=== PATIENT | female | born 1960 | race African-American/Black ===

== ENCOUNTER 2023-03-30 01:51 | Emergency (ER) | payer OTHER ==
[~2023-03-30] VITALS: Ht 170.2 cm; Wt 130.7 kg
[2023-03-30 02:49] LABS: Basophils # (auto) 0.1 10 ^3/uL (0-0.2); Eosinophils # (auto) 0.5 10 ^3/uL (0-0.8); Eosinophils % (auto) 6.3 % (0.0-7.0); Hemoglobin 12.2 g/dL (12.2-16.2); Monocytes # (auto) 0.6 10 ^3/uL (0-1.3); Nucleated Red Blood Cells % 0.2 %
[2023-03-30 02:51] LABS: Basophils % (auto) 1.3 % (0.0-2.0); Hematocrit 37.3 % (36.0-46.0); Lymphocytes # (auto) 2.7 10 ^3/uL (0.4-5.4); Mean Corpuscular Hemoglobin 26.5 pg (28.0-32.0); Mean Corpuscular Hgb Conc. 32.8 g/dL (32.0-36.0); Mean Corpuscular Volume 80.8 fL (80.0-100.0); Monocytes % (auto) 7.8 % (0.0-12.0); Neutrophils # (auto) 4.2 10 ^3/uL (1.6-8.6); Neutrophils % (auto) 51.6 % (37.0-80.0); Red Blood Cells 4.61 10^6/uL (4.0-5.20); Red Cell Distribution Width 15.2 % (11.8-14.3); White Blood Cell 8.1 10^3/uL (4.4-10.8)
[2023-03-30 03:01] LABS: Albumin 3.5 g/dL (3.4-5.0); BUN/Creatinine Ratio 23.6 (10.0-20.0); Calcium 9.3 mg/dL (8.5-10.1); Potassium 4.1 mmol/L (3.5-5.1)
[2023-03-30 03:04] LABS: Bilirubin, Total 0.4 mg/dL (0.2-1.0); Total Protein 7.5 g/dL (6.4-8.2)
[2023-03-30 03:06] LABS: INR 0.97 (0.9-1.15); Partial Thromboplastin Time 24.8 sec (24.6-33.4)
[2023-03-30 03:33] LABS: Urine Bacteria FEW /hpf (None Seen); Urine Blood Negative /uL (Negative); Urine Specific Gravity 1.023 (1.001-1.035); Urine WBC <1 /hpf (0 - 5)
[2023-03-30 05:50] VITALS: BP 145/74
== END 2023-03-30 09:45 | disposition left against medical advice (07) ==
LOC: ER 01:51
DX: R20.2 Paresthesia of skin (principal); E11.9 Type 2 diabetes mellitus without complications; E78.5 Hyperlipidemia, unspecified; I10 Essential (primary) hypertension; Z98.890 Other specified postprocedural states
CPT/HCPCS: 36415; 70496; 71045; 80053; 81001; 84484; 85025; 85610; 85730; 93005

== ENCOUNTER 2024-08-04 09:14 | Inpatient (IN) | payer MEDICARE, OTHER ==
[~2024-08-04] VITALS: Ht 170.2 cm; Wt 145.8 kg
[2024-08-04] VITALS (9 sets, daily range): BP systolic 145–166; BP diastolic 102–104; PULSE 22–122; RESP 12–22; TEMP 97.5–98; O2SAT 91–100
[2024-08-04] MEDS: ALBUTEROL SULF 2.5 MG/0.5ML(0.5%) NEB SOLN NEB ONE (09:56)
[2024-08-04] MEDS: IPRATROPIUM BROM 0.5 MG/2.5ML INH SOL NEB ONE (09:56)
[2024-08-04 10:42] LABS: Basophils # (auto) 0 10 ^3/uL (0-0.2); Eosinophils # (auto) 0.2 10 ^3/uL (0-0.8); Mean Corpuscular Hemoglobin 26.2 pg (28.0-32.0); Monocytes # (auto) 0.6 10 ^3/uL (0-1.3); Nucleated Red Blood Cells % 0.1 %
[2024-08-04 10:44] LABS: Basophils % (auto) 0.4 % (0.0-2.0); Eosinophils % (auto) 2.9 % (0.0-7.0); Hematocrit 39.5 % (36.0-46.0); Hemoglobin 12.6 g/dL (12.2-16.2); Lymphocytes % (auto) 27.4 % (10.0-50.0); Mean Corpuscular Hgb Conc. 31.9 g/dL (32.0-36.0); Mean Corpuscular Volume 82.1 fL (80.0-100.0); Monocytes % (auto) 7.6 % (0.0-12.0); Neutrophils # (auto) 4.6 10 ^3/uL (1.6-8.6); Neutrophils % (auto) 61.7 % (37.0-80.0); Platelet Count (auto) 217 10^3/uL (140-450); Red Blood Cells 4.82 10^6/uL (4.0-5.20); Red Cell Distribution Width 15.5 % (11.8-14.3); White Blood Cell 7.4 10^3/uL (4.4-10.8)
[2024-08-04] MEDS: FUROSEMIDE 40 MG/4 ML VIAL IV ONE (11:35)
[2024-08-04] MEDS: ACETAMINOPHEN 325 MG TAB PO ONE (11:35)
[2024-08-04 12:24] LABS: Chloride 107 mmol/L (98-107); Potassium 3.2 mmol/L (3.5-5.1); Sodium 143 mmol/L (136-145)
[2024-08-04 12:25] LABS: Anion Gap 9 (5-15); Carbon Dioxide 27 mmol/L (20-31)
[2024-08-04 12:26] LABS: Calcium 9.8 mg/dL (8.7-10.4)
[2024-08-04 12:30] LABS: Glucose 144 mg/dL (74-106)
[2024-08-04 12:31] LABS: BUN/Creatinine Ratio 13.4 (10.0-20.0); Blood Urea Nitrogen 11 mg/dL (9-23)
[2024-08-04] MEDS: POTASSIUM EFFERVESENT TAB 25 MEQ PO ONE (15:58)
[2024-08-04] MEDS ORDERED: ONDANSETRON HCL 4 MG/2 ML VIAL IV PRN (16:30)
[2024-08-04] MEDS: methylPREDNISolone SOD SUCC 125 MG/2 ML VL IV SCH (17:45)
[2024-08-04] MEDS: ALBUTEROL SULF 2.5 MG/0.5ML(0.5%) NEB SOLN NEB SCH ×2 (18:11→22:32)
[2024-08-04] MEDS: IPRATROPIUM BROM 0.5 MG/2.5ML INH SOL NEB SCH ×2 (18:11→22:32)
[2024-08-04] MEDS: SODIUM CHLOR 0.9% PF (SALINE LOCK) 10ML VIAL/SYR IV SCH (22:35)
[2024-08-04] MEDS: hydrALAZINE HCL 20 MG/ML VL IV PRN (22:35)
[2024-08-05] VITALS (21 sets, daily range): BP systolic 119–162; BP diastolic 76–105; PULSE 98–155; RESP 16–21; TEMP 97.5–98.6; O2SAT 94–100
[2024-08-05] MEDS ORDERED: ATOR10TA PO (01:18)
[2024-08-05] MEDS ORDERED: AMLO1TAB22 PO (01:18)
[2024-08-05] MEDS: ACETAMINOPHEN 325 MG TAB PO PRN (04:53)
[2024-08-05 09:57] LABS: Chloride 105 mmol/L (98-107); Potassium 3.4 mmol/L (3.5-5.1); Sodium 140 mmol/L (136-145)
[2024-08-05 09:59] LABS: Anion Gap 12 (5-15); Carbon Dioxide 23 mmol/L (20-31)
[2024-08-05 10:00] LABS: Calcium 10.1 mg/dL (8.7-10.4); Eosinophils # (auto) 0 10 ^3/uL (0-0.8)
[2024-08-05 10:04] LABS: Basophils # (auto) 0.1 10 ^3/uL (0-0.2); Basophils % (auto) 0.8 % (0.0-2.0); Hematocrit 40.2 % (36.0-46.0); Lymphocytes # (auto) 0.5 10 ^3/uL (0.4-5.4); Lymphocytes % (auto) 8.4 % (10.0-50.0); Mean Corpuscular Hemoglobin 26.5 pg (28.0-32.0); Mean Corpuscular Hgb Conc. 32.4 g/dL (32.0-36.0); Mean Corpuscular Volume 81.7 fL (80.0-100.0); Monocytes # (auto) 0 10 ^3/uL (0-1.3); Monocytes % (auto) 0.7 % (0.0-12.0); Neutrophils # (auto) 5.8 10 ^3/uL (1.6-8.6); Neutrophils % (auto) 90.1 % (37.0-80.0); Nucleated Red Blood Cells % 0.2 %; Platelet Count (auto) 241 10^3/uL (140-450); Red Blood Cells 4.92 10^6/uL (4.0-5.20); Red Cell Distribution Width 15.5 % (11.8-14.3); White Blood Cell 6.4 10^3/uL (4.4-10.8)
[2024-08-05 10:05] LABS: Alkaline Phosphatase 101 U/L (46-116); Blood Urea Nitrogen 15 mg/dL (9-23); Glucose 316 mg/dL (74-106)
[2024-08-05] MEDS: ENOXAPARIN SOD 40 MG/0.4 ML SYRINGE SC SCH (10:05)
[2024-08-05 10:06] LABS: Alanine Aminotransferase 29 U/L (7-40); Aspartate Aminotransferase 23 U/L (13-40)
[2024-08-05 10:07] LABS: Albumin 4.6 g/dL (3.2-4.8); Bilirubin, Total 0.7 mg/dL (0.2-1.0); Total Protein 8.2 g/dL (5.7-8.2)
[2024-08-05] MEDS: LEVALBUTEROL HCL 1.25 MG/3 ML NEB NEB SCH (10:41)
[2024-08-05] MEDS ORDERED: LEVALBUTEROL HCL 1.25 MG/3 ML NEB NEB SCH (14:00)
[2024-08-05] MEDS: HYDROcodone-ACET 5/325MG TAB PO PRN (15:09)
[2024-08-05 17:14] LABS: COVID19 ANTIGEN SOFIA FIA NEGATIVE (NEGATIVE)
[2024-08-05] MEDS: HYDROmorphone HCL 2 MG/ML VL/or syr IV PRN (23:52)
[2024-08-06] VITALS (19 sets, daily range): BP systolic 148–168; BP diastolic 94–111; PULSE 82–129; RESP 18–20; TEMP 97.3–98.9; O2SAT 95–100
[2024-08-06 00:36] LABS: Rapid Influenza A Negative (Negative); Rapid Influenza B Negative (Negative)
[2024-08-06 08:06] LABS: Mean Corpuscular Hgb Conc. 31.9 g/dL (32.0-36.0); Mean Corpuscular Volume 82.4 fL (80.0-100.0)
[2024-08-06 08:08] LABS: Hematocrit 38.6 % (36.0-46.0); Hemoglobin 12.3 g/dL (12.2-16.2); Mean Corpuscular Hemoglobin 26.2 pg (28.0-32.0); Platelet Count (auto) 240 10^3/uL (140-450); Red Blood Cells 4.69 10^6/uL (4.0-5.20); Red Cell Distribution Width 15.7 % (11.8-14.3)
[2024-08-06 08:21] LABS: Band Neutrophils % (manual) 0; Basophils % (manual) 0 (0.0-2.0); Blast Cells 0; Eosinophils % (manual) 0 (0-7); Metamyelocytes % 0; Monocytes % (manual) 0 (0-12); Myelocytes % 0; Promyelocytes % 0; Reactive Lymphocytes 0
[2024-08-06 08:31] LABS: Alanine Aminotransferase 25 U/L (7-40); Albumin 4.3 g/dL (3.2-4.8); Alkaline Phosphatase 90 U/L (46-116); Anion Gap 12 (5-15); Aspartate Aminotransferase 17 U/L (13-40); BUN/Creatinine Ratio 16.9 (10.0-20.0); Blood Urea Nitrogen 20 mg/dL (9-23); Calcium 10.4 mg/dL (8.7-10.4); Carbon Dioxide 24 mmol/L (20-31); Chloride 103 mmol/L (98-107); Glucose 256 mg/dL (74-106); Potassium 4.2 mmol/L (3.5-5.1); Sodium 139 mmol/L (136-145)
[2024-08-06 08:32] LABS: Bilirubin, Total 0.5 mg/dL (0.2-1.0); Total Protein 7.8 g/dL (5.7-8.2)
[2024-08-06 09:03] LABS: Lymphocytes % (manual) 6 (10.0-50.0); Platelet Estimate Adequate
[2024-08-06] MEDS: AZITHROMYCIN 500MG/ 250ML 250 ML IV ONE (11:25)
[2024-08-06] MEDS ORDERED: METF-370 PO (16:41)
[2024-08-07] VITALS (21 sets, daily range): BP systolic 140–170; BP diastolic 85–111; PULSE 98–132; RESP 16–21; TEMP 96.2–98.1; O2SAT 94–100
[2024-08-07 06:03] LABS: Hematocrit 38.6 % (36.0-46.0); Hemoglobin 12.3 g/dL (12.2-16.2); Mean Corpuscular Hemoglobin 26.1 pg (28.0-32.0); Mean Corpuscular Hgb Conc. 31.8 g/dL (32.0-36.0); Platelet Count (auto) 230 10^3/uL (140-450); Red Blood Cells 4.71 10^6/uL (4.0-5.20); Red Cell Distribution Width 15.3 % (11.8-14.3); White Blood Cell 11.7 10^3/uL (4.4-10.8)
[2024-08-07 06:16] LABS: Alanine Aminotransferase 30 U/L (7-40); Alkaline Phosphatase 81 U/L (46-116); Anion Gap 8 (5-15); BUN/Creatinine Ratio 21.5 (10.0-20.0); Blood Urea Nitrogen 23 mg/dL (9-23); Calcium 10.1 mg/dL (8.7-10.4); Carbon Dioxide 25 mmol/L (20-31); Chloride 106 mmol/L (98-107); Glucose 255 mg/dL (74-106); Potassium 4.5 mmol/L (3.5-5.1); Sodium 139 mmol/L (136-145)
[2024-08-07 06:17] LABS: Albumin 4.4 g/dL (3.2-4.8); Aspartate Aminotransferase 28 U/L (13-40); Bilirubin, Total 0.5 mg/dL (0.2-1.0); Total Protein 7.5 g/dL (5.7-8.2)
[2024-08-07 06:40] LABS: Basophils % (manual) 0 (0.0-2.0); Blast Cells 0; Eosinophils % (manual) 0 (0-7); Metamyelocytes % 0; Monocytes % (manual) 0 (0-12); Myelocytes % 0; Promyelocytes % 0; Reactive Lymphocytes 0
[2024-08-07 07:45] LABS: Band Neutrophils % (manual) 4; Lymphocytes % (manual) 7 (10.0-50.0)
[2024-08-07 07:46] LABS: Platelet Estimate Adequate
[2024-08-07 09:10] LABS: Magnesium 2.1 mg/dL (1.6-2.6)
[2024-08-07 10:33] LABS: INR 1.11 (0.9-1.15); Partial Thromboplastin Time 23.1 SEC (24.5-34.5); Prothrombin Time 11.7 sec (9.3-11.8)
[2024-08-07] MEDS: cefTRIAXone 1GM/50ML D5W 50 ML IV SCH (11:09)
[2024-08-07] MEDS: ENOXAPARIN SOD 40 MG/0.4 ML SYRINGE SC SCH (11:12)
[2024-08-07] MEDS: AZITHROMYCIN 500MG/ 250ML 250 ML IV SCH (11:13)
[2024-08-07] MEDS: LACTATED RINGER'S 1,000 ML IV ONE (16:34)
[2024-08-07] MEDS: dilTIAZem 25 MG/5 ML VIAL IV ONE (18:08)
[2024-08-07] MEDS: METOPROLOL SUCCINATE XL 50 MG TAB PO ONE (18:12)
[2024-08-07] MEDS ORDERED: levoFLOXacin 750MG 150 ML IV ONE (18:15)
[2024-08-07 18:23] LABS: Urine Bacteria None Seen /hpf (None Seen)
[2024-08-07] MEDS: SODIUM CHLORIDE 0.9% 1,000 ML IV SCH (18:38)
[2024-08-07 18:59] LABS: Amphetamine Screen, Urine Neg (NEGATIVE); Barbiturate Scree,Urine Neg (NEGATIVE); Benzodiazephine Screen, Urine Neg (NEGATIVE); Cocaine Screen, Urine Neg (NEGATIVE); Opiate Scree,Urine Neg (NEGATIVE)
[2024-08-07 19:00] LABS: Cannabinoid Screen, Urine Neg (NEGATIVE); Phencyclidine Screen, Urine Neg (NEGATIVE); Urine Blood Negative /uL (Negative); Urine Clarity Clear (Clear); Urine Color Yellow (Yellow); Urine Mucus FEW (None Seen); Urine Protein, UAD 1+ (Negative); Urine Specific Gravity 1.032 (1.001-1.035); Urine Urobilinogen Normal (Negative); Urine WBC 1 /hpf (0 - 5)
[2024-08-07] MEDS ORDERED: LEVOFLOXACIN 250 MG IV ONE (20:00)
[2024-08-07] MEDS ORDERED: levoFLOXacin 250MG 50 ML IV ONE (20:00)
[2024-08-07] MEDS ORDERED: levoFLOXacin 500MG 100 ML IV ONE (20:00)
[2024-08-07 20:19] LABS: Lactic Acid w/Reflex 4.2 mmol/L (0.4-2.0)
[2024-08-07] MEDS: levoFLOXacin 250MG 50 ML IV SCH (20:33)
[2024-08-07] MEDS: APIXABAN 5 MG TAB PO SCH (20:52)
[2024-08-07] MEDS: FAMOTIDINE 20 MG TAB PO SCH (20:52)
[2024-08-08] VITALS (20 sets, daily range): BP systolic 141–170; BP diastolic 95–114; PULSE 93–120; RESP 18–21; TEMP 97.2–98.3; O2SAT 95–100
[2024-08-08 07:27] LABS: Basophils # (auto) 0 10 ^3/uL (0-0.2); Eosinophils # (auto) 0 10 ^3/uL (0-0.8); Hemoglobin 11.5 g/dL (12.2-16.2); Lymphocytes # (auto) 0.6 10 ^3/uL (0.4-5.4); Lymphocytes % (auto) 7.3 % (10.0-50.0); Mean Corpuscular Hemoglobin 25.9 pg (28.0-32.0); Mean Corpuscular Volume 80.9 fL (80.0-100.0); Monocytes # (auto) 0.3 10 ^3/uL (0-1.3); Monocytes % (auto) 4.3 % (0.0-12.0); Neutrophils # (auto) 7.1 10 ^3/uL (1.6-8.6); Neutrophils % (auto) 88.4 % (37.0-80.0); Nucleated Red Blood Cells % 0.2 %; Platelet Count (auto) 195 10^3/uL (140-450); Red Blood Cells 4.45 10^6/uL (4.0-5.20); Red Cell Distribution Width 15.4 % (11.8-14.3)
[2024-08-08 07:41] LABS: Alanine Aminotransferase 31 U/L (7-40); Alkaline Phosphatase 73 U/L (46-116); Anion Gap 8 (5-15); Aspartate Aminotransferase 19 U/L (13-40); BUN/Creatinine Ratio 20.8 (10.0-20.0); Bilirubin, Total 0.4 mg/dL (0.2-1.0); Blood Urea Nitrogen 22 mg/dL (9-23); Calcium 9.8 mg/dL (8.7-10.4); Carbon Dioxide 26 mmol/L (20-31); Chloride 104 mmol/L (98-107); Glucose 231 mg/dL (74-106); Potassium 4.3 mmol/L (3.5-5.1); Sodium 138 mmol/L (136-145); Total Protein 7.1 g/dL (5.7-8.2)
[2024-08-08] MEDS: predniSONE 20 MG TAB PO SCH (09:53)
[2024-08-08] MEDS ORDERED: METOPROLOL SUCCINATE XL 50 MG TAB PO SCH (10:00)
[2024-08-08] MEDS ORDERED: HYDR12.59 PO (10:06)
[2024-08-08] MEDS: METOPROLOL SUCCINATE XL 50 MG TAB PO SCH (10:41)
[2024-08-08] MEDS: DOCUSATE SOD 100 MG CAP PO PRN (10:41)
[2024-08-08] MEDS: LEVOFLOXACIN 250 MG IV SCH (15:29)
[2024-08-08] MEDS: amLODIPine BESYLATE 5 MG TAB PO ONE (15:29)
[2024-08-08 15:58] LABS: Lactic Acid w/Reflex 2.6 mmol/L (0.4-2.0)
[2024-08-09] VITALS (25 sets, daily range): BP systolic 103–166; BP diastolic 86–118; PULSE 96–128; RESP 16–24; TEMP 97.5–98.3; O2SAT 94–100
[2024-08-09 06:28] LABS: Basophils # (auto) 0 10 ^3/uL (0-0.2); Eosinophils # (auto) 0 10 ^3/uL (0-0.8); Eosinophils % (auto) 0.1 % (0.0-7.0); Mean Corpuscular Volume 81.5 fL (80.0-100.0); Monocytes # (auto) 0.6 10 ^3/uL (0-1.3); Platelet Count (auto) 198 10^3/uL (140-450); White Blood Cell 9.1 10^3/uL (4.4-10.8)
[2024-08-09 06:37] LABS: Hematocrit 36.7 % (36.0-46.0); Hemoglobin 11.9 g/dL (12.2-16.2); Lymphocytes # (auto) 1.5 10 ^3/uL (0.4-5.4); Lymphocytes % (auto) 16.8 % (10.0-50.0); Mean Corpuscular Hemoglobin 26.5 pg (28.0-32.0); Mean Corpuscular Hgb Conc. 32.5 g/dL (32.0-36.0); Monocytes % (auto) 6.5 % (0.0-12.0); Neutrophils % (auto) 76.6 % (37.0-80.0); Nucleated Red Blood Cells % 0.1 %; Red Cell Distribution Width 15.7 % (11.8-14.3)
[2024-08-09 06:42] LABS: Alanine Aminotransferase 64 U/L (7-40); Albumin 4.1 g/dL (3.2-4.8); Alkaline Phosphatase 73 U/L (46-116); Anion Gap 8 (5-15); Aspartate Aminotransferase 101 U/L (13-40); BUN/Creatinine Ratio 20.4 (10.0-20.0); Blood Urea Nitrogen 20 mg/dL (9-23); Calcium 9.3 mg/dL (8.7-10.4); Carbon Dioxide 27 mmol/L (20-31); Chloride 105 mmol/L (98-107); Glucose 176 mg/dL (74-106); Potassium 3.6 mmol/L (3.5-5.1); Sodium 140 mmol/L (136-145)
[2024-08-09 06:43] LABS: Bilirubin, Total 0.4 mg/dL (0.2-1.0); Total Protein 6.9 g/dL (5.7-8.2)
[2024-08-09] MEDS: amLODIPine BESYLATE 5 MG TAB PO SCH (10:41)
[2024-08-09] MEDS ORDERED: POLYETHYLENE GLYCOL 17 GM PWDR PO PRN (18:30)
[2024-08-10] VITALS (18 sets, daily range): BP systolic 126–158; BP diastolic 82–109; PULSE 103–114; RESP 14–20; TEMP 98–98.2; O2SAT 94–100
[2024-08-10 05:25] LABS: Basophils # (auto) 0 10 ^3/uL (0-0.2); Eosinophils # (auto) 0.1 10 ^3/uL (0-0.8); Hemoglobin 12.3 g/dL (12.2-16.2); Mean Corpuscular Volume 80.8 fL (80.0-100.0); Monocytes # (auto) 0.6 10 ^3/uL (0-1.3); Monocytes % (auto) 6.2 % (0.0-12.0); Nucleated Red Blood Cells % 0.2 %
[2024-08-10 05:28] LABS: Basophils % (auto) 0.3 % (0.0-2.0); Eosinophils % (auto) 1.3 % (0.0-7.0); Hematocrit 37.5 % (36.0-46.0); Lymphocytes # (auto) 2.1 10 ^3/uL (0.4-5.4); Mean Corpuscular Hemoglobin 26.5 pg (28.0-32.0); Mean Corpuscular Hgb Conc. 32.8 g/dL (32.0-36.0); Neutrophils # (auto) 6.8 10 ^3/uL (1.6-8.6); Neutrophils % (auto) 70.2 % (37.0-80.0); Platelet Count (auto) 197 10^3/uL (140-450); Red Blood Cells 4.63 10^6/uL (4.0-5.20); Red Cell Distribution Width 15.5 % (11.8-14.3); White Blood Cell 9.8 10^3/uL (4.4-10.8)
[2024-08-10 05:30] LABS: Chloride 104 mmol/L (98-107); Potassium 3.5 mmol/L (3.5-5.1); Sodium 140 mmol/L (136-145)
[2024-08-10 05:31] LABS: Anion Gap 7 (5-15); Carbon Dioxide 29 mmol/L (20-31)
[2024-08-10 05:36] LABS: Glucose 140 mg/dL (74-106)
[2024-08-10 05:37] LABS: BUN/Creatinine Ratio 16.9 (10.0-20.0); Blood Urea Nitrogen 13 mg/dL (9-23)
[2024-08-10 06:21] LABS: Lactic Acid w/Reflex 2.7 mmol/L (0.4-2.0)
[2024-08-11] VITALS (23 sets, daily range): BP systolic 119–163; BP diastolic 77–106; PULSE 61–116; RESP 16–22; TEMP 97.5–98.3; O2SAT 92–100
[2024-08-11 07:01] LABS: Basophils # (auto) 0 10 ^3/uL (0-0.2); Basophils % (auto) 0.1 % (0.0-2.0); Eosinophils # (auto) 0.2 10 ^3/uL (0-0.8); Eosinophils % (auto) 2.5 % (0.0-7.0)
[2024-08-11 07:04] LABS: Hematocrit 38.6 % (36.0-46.0); Hemoglobin 12.4 g/dL (12.2-16.2); Lymphocytes % (auto) 22.4 % (10.0-50.0); Mean Corpuscular Hemoglobin 25.9 pg (28.0-32.0); Mean Corpuscular Hgb Conc. 32.1 g/dL (32.0-36.0); Mean Corpuscular Volume 80.8 fL (80.0-100.0); Monocytes # (auto) 0.5 10 ^3/uL (0-1.3); Monocytes % (auto) 6.2 % (0.0-12.0); Neutrophils % (auto) 68.8 % (37.0-80.0); Nucleated Red Blood Cells % 0.2 %; Platelet Count (auto) 211 10^3/uL (140-450); Red Blood Cells 4.78 10^6/uL (4.0-5.20); Red Cell Distribution Width 15.7 % (11.8-14.3); White Blood Cell 8.8 10^3/uL (4.4-10.8)
[2024-08-11 07:12] LABS: Anion Gap 8 (5-15); Carbon Dioxide 31 mmol/L (20-31); Chloride 103 mmol/L (98-107); Potassium 3.2 mmol/L (3.5-5.1); Sodium 142 mmol/L (136-145)
[2024-08-11 07:13] LABS: Calcium 9.2 mg/dL (8.7-10.4)
[2024-08-11 07:18] LABS: BUN/Creatinine Ratio 16.5 (10.0-20.0); Blood Urea Nitrogen 13 mg/dL (9-23); Glucose 145 mg/dL (74-106)
[2024-08-11] MEDS ORDERED: IPRATROPIUM BROM 0.5 MG/2.5ML INH SOL NEB PRN (08:00)
[2024-08-11] MEDS ORDERED: ALBUTEROL SULF 2.5 MG/0.5ML(0.5%) NEB SOLN NEB PRN (08:00)
[2024-08-11] MEDS: POTASSIUM CHL 20 Meq TABLET PO SCH (09:45)
[2024-08-11] MEDS ORDERED: HYDROMORPHONE HCL 1 MG/ML INJ IV PRN (09:45)
[2024-08-11] MEDS: MECLIZINE HCL 25 MG TAB PO ONE (09:45)
[2024-08-12] VITALS (12 sets, daily range): BP systolic 140–167; BP diastolic 88–113; PULSE 96–140; RESP 15–22; TEMP 97.6–98.7; O2SAT 93–100
[2024-08-12] MEDS ORDERED: METO-6 PO (09:48)
[2024-08-12] MEDS ORDERED: BUDE1AER16 IN (09:48)
[2024-08-12] MEDS ORDERED: ALBUAER3 IN (09:48)
[2024-08-12] MEDS ORDERED: APIX5TAB PO (09:48)
[2024-08-12] MEDS ORDERED: PRED20TA2 PO (09:48)
== END 2024-08-12 14:30 | disposition home or self-care (01) | DRG 871 ==
LOC: ER 09:14 → UNDOADMIN 16:28 → OVERFLOW 16:28 → TELE 18:23 → TELE-CENTR 21:10
PROVIDERS: ADMIT Internal Medicine; ATTEND Student in an Organized Health Care Education/Training Program
DX: A41.89 Other specified sepsis (principal); J12.9 Viral pneumonia, unspecified; J15.69 Pneumonia due to other Gram-negative bacteria; J96.01 Acute respiratory failure with hypoxia; J15.9 Unspecified bacterial pneumonia; J45.901 Unspecified asthma with (acute) exacerbation; J44.1 Chronic obstructive pulmonary disease with (acute) exacerbation; E87.20 Acidosis, unspecified; Z68.42 Body mass index [BMI] 45.0-49.9, adult; J44.0 Chronic obstructive pulmonary disease with (acute) lower respiratory infection; Z20.822 Contact with and (suspected) exposure to COVID-19; B34.9 Viral infection, unspecified; K44.9 Diaphragmatic hernia without obstruction or gangrene; I10 Essential (primary) hypertension; E11.9 Type 2 diabetes mellitus without complications; Z96.653 Presence of artificial knee joint, bilateral; E78.5 Hyperlipidemia, unspecified; E66.01 Morbid (severe) obesity due to excess calories; I48.0 Paroxysmal atrial fibrillation; Z82.49 Family history of ischemic heart disease and other diseases of the circulatory system; Z83.3 Family history of diabetes mellitus; Z80.42 Family history of malignant neoplasm of prostate
CPT/HCPCS: 36415; 71045; 71250; 80048; 80053; 80061; 80307; 81001; 82270; 82306; 82607; 83036; 83605; 83735; 83880; 84100; 84443; 84484; 85007; 85025; 85027; 85610; 85730; 87426; 87804; 93005; 93306; 94640; 99291; G0378

== ENCOUNTER → 2025-02-24 | Outpatient (CLI) | payer MEDICARE ==
[~2025-02-24] MED LIST: ALBUAER3 IN; AMLO1TAB22 PO; APIX5TAB PO; ATOR10TA PO; BUDE1AER16 IN; HYDR12.59 PO; METF-370 PO; METO-6 PO; PRED20TA2 PO
[2025-02-24 09:50] LABS: Basophils # (auto) 0 10 ^3/uL (0-0.2); Basophils % (auto) 0.4 % (0.0-2.0); Eosinophils # (auto) 0.3 10 ^3/uL (0-0.8); Eosinophils % (auto) 4.5 % (0.0-7.0); Hematocrit 40.2 % (36.0-46.0); Lymphocytes # (auto) 1.8 10 ^3/uL (0.4-5.4); Lymphocytes % (auto) 27.8 % (10.0-50.0); Mean Corpuscular Hemoglobin 26.1 pg (28.0-32.0); Mean Corpuscular Hgb Conc. 32.3 g/dL (32.0-36.0); Mean Corpuscular Volume 80.7 fL (80.0-100.0); Monocytes # (auto) 0.5 10 ^3/uL (0-1.3); Monocytes % (auto) 7.7 % (0.0-12.0); Neutrophils # (auto) 3.7 10 ^3/uL (1.6-8.6); Neutrophils % (auto) 59.6 % (37.0-80.0); Nucleated Red Blood Cells % 0.1 %; Platelet Count (auto) 210 10^3/uL (140-450); Red Blood Cells 4.99 10^6/uL (4.0-5.20); Red Cell Distribution Width 15.5 % (11.8-14.3); White Blood Cell 6.3 10^3/uL (4.4-10.8)
[2025-02-24 09:55] LABS: Urine Blood Negative /uL (Negative); Urine Clarity Turbid (Clear); Urine Color Yellow (Yellow); Urine Protein, UAD 1+ (Negative); Urine Specific Gravity 1.025 (1.001-1.035); Urine Urobilinogen Normal (Negative)
[2025-02-24 10:13] LABS: Alanine Aminotransferase 11 U/L (7-40); Albumin 4.2 g/dL (3.2-4.8); Alkaline Phosphatase 75 U/L (46-116); Anion Gap 10 (5-15); BUN/Creatinine Ratio 15.2 (10.0-20.0); Blood Urea Nitrogen 14 mg/dL (9-23); Calcium 9.9 mg/dL (8.7-10.4); Carbon Dioxide 28 mmol/L (20-31); Chloride 105 mmol/L (98-107); LDL Cholesterol 86 mg/dL (< 100); Potassium 3.5 mmol/L (3.5-5.1); Sodium 143 mmol/L (136-145); Total Protein 7.1 g/dL (5.7-8.2); Triglycerides 102 mg/dL (< 150)
[2025-02-24 10:14] LABS: Aspartate Aminotransferase 13 U/L (13-40); Bilirubin, Direct 0.3 mg/dL (<0.3); Bilirubin, Total 0.9 mg/dL (0.2-1.0); Cholesterol 136 mg/dL (< 200); Glucose 120 mg/dL (74-106); HDL Cholesterol 38 mg/dL (40-59)
== END | disposition home or self-care (01) ==
LOC: LAB 09:18
PROVIDERS: ATTEND Internal Medicine Cardiovascular Disease
DX: I10 Essential (primary) hypertension (principal); E11.9 Type 2 diabetes mellitus without complications; E55.9 Vitamin D deficiency, unspecified; D64.9 Anemia, unspecified; R00.2 Palpitations
CPT/HCPCS: 36415; 80048; 80061; 80076; 81003; 83036; 84443; 85025

== ENCOUNTER → 2025-02-24 | Outpatient (CLI) | payer MEDICARE, BC | END | disposition home or self-care (01) | LOC: Rad HDHVI 12:57 | PROVIDERS: ATTEND Internal Medicine Cardiovascular Disease | DX: Z01.810 Encounter for preprocedural cardiovascular examination (principal); I08.8 Other rheumatic multiple valve diseases | CPT/HCPCS: 93306 ==

== ENCOUNTER → 2025-03-01 | Outpatient (CLI) | payer MEDICARE, BC ==
[~2025-03-01] VITALS: Ht 170.2 cm; Wt 127.0 kg
--- NOTE | 2025-03-09 10:23 | DVHSR ---
APPROVED REPORT Exam: Nuclear Stress Test Indication: Pre-Operative CV evaluation Ht: 5 ft 7 in Wt: 280 lbs BSA: 2.33 m2 HR: 80 bpm BP: 143/102 mmHg BMI: 43.84 Rhythm: Atrial Fibrillation Medical History Medical History: HTN, Hypercholesterolemia, Diabetes, Atrial Fibrillation Medications: Metoprolol, Atorvastatin, Norvasc, Eliquis Allergies: No known drug allergies Cardiac Risk Factors: Family Hx of CAD Meds Held (24 hrs): Metoprolol Stress Test Details Stress Test: Exercise stress testing was performed using a Mateus protocol. HR Resting HR: 80 bpmMax Heart Rate (APMHR): 155.162256 bpm Max HR Achieved: 169 bpmTarget HR (85% APMHR): 131.349873 bpm % of APMHR: 109.03 Recovery HR: 83 bpm HR response to stress: Accelerated HR response to stress BP Resting BP: 143/102 mmHg Max BP: 169/103 mmHg Recovery BP: 152/94 mmHg BP response to stress: Resting hypertension ECG Resting ECG: Atrial Fibrillation Stress ECG: Atrial Fibrillation with RVR Arrhythmia: Atrial fibrillation, PVCs Recovery ECG: Atrial Fibrillation Clinical Reason for Termination: Arrhythmias Stress Symptoms: None Exercise duration: 3 min sec Exercise capacity: 3.4 METs Stress ECG Conclusion DILATED CM EF <35% NM EXAM: Myocardial Perfusion REST/STRESS Imaging Protocol: Rest Tc-99m/Stress Tc-99m 1 day Resting Data Rest SPECT myocardial perfusion imaging was performed in supine position 30 minutes following the int ravenous injection of 10.26 mCi of Tc-99m Sestamibi. Time of rest injection: 817 Date: 03/01/2025 Time of rest imagin Date: 03/01/2025 Administration Route: IV Administration Site: Right AC Exercise Stress At peak stress, the patient was injected intravenously with 32.8 mCi of Tc-99m Sestamibi. Time of stress injection: 925 Date: 03/01/2025 Time of stress imagin Date: 03/01/2025 Administration Route: IV Administration Site: Right AC Heart Rate at time of stress injection: 166 bpm. Patient continued to exercise for 1 minute(s). Gated Stress SPECT was performed 15 minutes after stress injection. The images were gated to evaluate regional wall motion and calculate left ventricular ejection fracti on. Comments Study Data Post stress, the left ventricular ejection was 39%.. Nuclear Conclusion DILATED CM EF <35%
== END | disposition home or self-care (01) ==
LOC: Rad HDHVI 08:03
PROVIDERS: ATTEND Internal Medicine Cardiovascular Disease
DX: Z01.810 Encounter for preprocedural cardiovascular examination (principal); I49.3 Ventricular premature depolarization; I48.91 Unspecified atrial fibrillation; I42.0 Dilated cardiomyopathy; I10 Essential (primary) hypertension; E11.9 Type 2 diabetes mellitus without complications; E78.00 Pure hypercholesterolemia, unspecified; Z82.49 Family history of ischemic heart disease and other diseases of the circulatory system; Z68.41 Body mass index [BMI] 40.0-44.9, adult
CPT/HCPCS: 78452; 93017; A9500; 96374